=== PATIENT | male | born 1960 ===

== ENCOUNTER → 2017-07-05 18:25 | Outpatient (CLI) | payer BC ==
[2017-07-08 12:10] LABS: HCVGENO - HEP C QUANT HCV Not Detected IU/mL (())
[2017-07-08 14:11] LABS: HBV IU/ML HBV DNA not detected IU/mL (())
== END | disposition home or self-care (01) ==
LOC: D.LABREF 18:25
PROVIDERS: Student in an Organized Health Care Education/Training Program
DX: M06.9 Rheumatoid arthritis, unspecified (principal); Z11.9 Encounter for screening for infectious and parasitic diseases, unspecified